=== PATIENT | male | born 1970 | race Caucasian/White ===

== ENCOUNTER 2017-05-03 14:10 | Emergency (ER) | payer MEDICAID ==
[~2017-05-03] VITALS: Ht 170.2 cm; Wt 89.0 kg
[~2017-05-03 14:10] MED LIST: ALLO100T64 PO; VIC
[2017-05-03 14:16] VITALS: Ht 170.2 cm; Wt 89.0 kg
[2017-05-03] MEDS ORDERED: HYDR-906 PO (15:05)
--- NOTE | 2017-05-03 15:13 | ERD ---
ER Documentation Chief Complaint Chief Complaint R ANKLE PAIN HAS HX OF GOUT HPI Patient is a 46-year-old male with a history of chronic gout presents to the ED for concerns of ankle pain. Patient states his right ankle pain started 2 days ago. Patient denies any falls or trauma. Patient denies any fevers or chills. Patient denies any redness. Patient slowly has swelling to the ankle joint. Patient does report taking indomethacin and colchicine daily. Patient denies any recent alcohol use, increased salt intake. Patient states he has had numerous gouty attacks and feels as if his current symptoms are related to gout. Patient states that he is needing stronger medication at this time. Patient denies any leg numbness or tingling. Patient works as [employer]. Patient denies any chest pain, shortness of breath, nausea, vomiting, headache, blurry vision or LOC. ROS All systems reviewed and are negative except as per history of present illness. Medications Home Meds Active Scripts Hydrocodone/Acetaminophen ([place] 5-325 Tablet) 1 Each Tablet, 1 TAB PO Q6H Y for PAIN, #10 TAB Prov:HANK WEAVER PA-C 05/03/17 Reported Medications Allopurinol* (Zyloprim*) 100 Mg Tablet, 100 MG PO daily 09/06/12 Acetaminophen/Hydrocodone (Vicodin) 1 Tab Tab 08/21/12 Allergies Allergies: Coded Allergies: No Known Drug Allergies (Verified Allergy, 09/23/12) PMhx/Soc History of Surgery: No Anesthesia Reaction: No Hx Neurological Disorder: No Hx Respiratory Disorders: No Hx Cardiac Disorders: No Hx Psychiatric Problems: No Hx Miscellaneous Medical Probl: Yes (gout) Hx Alcohol Use: No Hx Substance Use: No Hx Tobacco Use: No Physical Exam Vitals Vital Signs Date Time Temp Pulse Resp B/P Pulse Ox O2 Delivery O2 Flow Rate FiO2 05/03/17 15:21 98.1 78 18 152/80 98 Room Air 05/03/17 14:16 98.5 79 19 163/100 97 Physical Exam GENERAL: Well-developed, well-nourished male. Appears in no acute distress. Speaking in full sentences. HEAD: Normocephalic, atraumatic. EYES: Pupils are equally reactive bilaterally. EOMs grossly intact. No conjunctival erythema. ENT: Moist mucous membranes. No uvula deviation. No kissing tonsils. NECK: Supple. No meningismus. Normal range of motion of the neck. LUNG: Clear to auscultation bilaterally. No rhonchi, wheezing, rales or coarse breath sounds. HEART: Regular rate and rhythm. No murmurs, rubs or gallops. EXTREMITIES: Equal pulses bilaterally. No peripheral clubbing, cyanosis or edema. No unilateral leg swelling. Old scars and abrasions noted on bilateral knees, consistent with history of being a [employer]. NEUROLOGIC: Alert and oriented. Moving all four extremities without any difficulty. Normal speech. Steady gait. SKIN: Normal color. Warm and dry. No rashes or lesions. LEFT ANKLE: Minimal swelling on the lateral aspect of the ankle. No erythema, ecchymosis or obvious deformities noted. Skin intact. Full ROM of the knee.. Decreased range of motion of the ankle secondary to swelling. Sensation is intact to light touch. Lateral aspect of the ankle is tender to palpation. Tibia/fibula is nontender palpation. Midfoot and fifth metatarsal are nontender to palpation.. Neurovascularly intact. (Able to plantarflex, dorsiflex , jamia foot, invert foot, raise big toe.) 2+ DP and DT pulses. Procedures/MDM MEDICAL DECISION MAKING: This is a 46-year-old male with a history of gout presents ED for concerns of ankle pain 2 days. Patient felt as if his symptoms are consistent with previous gout attacks. Patient denies any falls or trauma.. Vital signs were reviewed. Patient was afebrile. Given the patient denied any falls or trauma, there is no indication for x-ray imaging at this time. At this time the patient's presentation is most consistent with gout. Patient was advised to continue colchicine and indomethacin as prescribed. Patient will be given a short course of [place] to help with pain control. Patient was affected extremity elevated and to put ice on the affected extremity. Low suspicion for ankle dislocation, ankle fracture , tibia fracture, fibula fracture, Maisonneuve fracture, foot fracture, osteomyelitis, septic joint, DVT, compartment syndrome or ankle sprain. At this time, unable to rule out any tendon and ligament injuries. PRESCRIPTIONS: [place] DISCHARGE: At this time, patient is stable for discharge and outpatient management. RICE therapy and ROM exercises were advised to avoid stiffness. I have instructed the patient to follow-up with his/her primary care physician in 1-2 days. I have discussed with the patient the possibility of needing to see an provider education specialist for further workup and imaging if the pain persists. I have instructed the patient to promptly return to the ER for any new or worsening symptoms including increased pain, swelling, redness, warmth or fever. The patient and/or family expressed understanding of and agreement with this plan. All questions were answered. Home care instructions were provided. Patients blood pressure was elevated (>120/80) but appears stable without evidence of hypertensive emergency, hypertensive urgency or end-organ failure. I had discussion with the patient about the risks of hypertension. I have advised the patient to follow up with his/her primary care physician for outpatient monitoring and treatment for hypertension in 2-3 days. I have instructed the patient to return to the ER for any new or worsening symptoms including chest pain, shortness of breath, headache, blurred vision, confusion, nausea, vomiting or LOC. Disclaimer: Inadvertent spelling and grammatical errors are likely due to EHR/ dictation software use and do not reflect on the overall quality of patient care. Also, please note that the electronic time recorded on this note does not necessarily reflect the actual time of the patient encounter. Departure Diagnosis: Primary Impression: Gout attack Gout site: ankle Gout etiology: unspecified cause Laterality: left Qualified Code: M10.9 - Acute gout of left ankle, unspecified cause Additional Impression: Ankle pain Chronicity: acute Laterality: left Qualified Code: M25.572 - Acute left ankle pain Condition: Stable Patient Instructions: Treating Gout Attacks, Gout Diet Referrals: [facility] YOU HAVE RECEIVED A MEDICAL SCREENING EXAM AND THE RESULTS INDICATE THAT YOU DO NOT HAVE A CONDITION THAT REQUIRES URGENT TREATMENT IN THE EMERGENCY DEPARTMENT. FURTHER EVALUATION AND TREATMENT OF YOUR CONDITION CAN WAIT UNTIL YOU ARE SEEN IN YOUR DOCTORS OFFICE WITHIN THE NEXT 1-2 DAYS. IT IS YOUR RESPONSIBILITY TO MAKE AN APPOINTMENT FOR FOLOW-UP CARE. IF YOU HAVE A PRIMARY DOCTOR --you should call your primary doctor and schedule an appointment IF YOU DO NOT HAVE A PRIMARY DOCTOR YOU CAN CALL OUR PHYSICIAN REFERRAL HOTLINE AT IF YOU CAN NOT AFFORD TO SEE A PHYSICIAN YOU CAN CHOSE FROM THE FOLLOWING [facility] [address] [facility] [facility]. [facility] [address] [facility] [address] [facility] [address] [facility]. [facility] [address] [facility]. [facility]. [address] [place]. [facility] YOU HAVE RECEIVED A MEDICAL SCREENING EXAM AND THE RESULTS INDICATE THAT YOU DO NOT HAVE A CONDITION THAT REQUIRES URGENT TREATMENT IN THE EMERGENCY DEPARTMENT. FURTHER EVALUATION AND TREATMENT OF YOUR CONDITION CAN WAIT UNTIL YOU ARE SEEN IN YOUR DOCTORS OFFICE WITHIN THE NEXT 1-2 DAYS. IT IS YOUR RESPONSIBILITY TO MAKE AN APPOINTMENT FOR FOLOW-UP CARE. IF YOU HAVE A PRIMARY DOCTOR --you should call your primary doctor and schedule and appointment IF YOU DO NOT HAVE A PRIMARY DOCTOR YOU CAN CALL OUR PHYSICIAN REFERRAL HOTLINE AT . IF YOU CAN NOT AFFORD TO SEE A PHYSICIAN YOU CAN CHOSE FROM THE FOLLOWING [facility] INSTITUTIONS: [facility] [address] [place] [address] [facility] [address] [place] [address] [facility] [address] [place] [address] Additional Instructions: Continue taking indomethacin and colchicine as prescribed. Do not take [place] when driving or operating any machinery. Call your primary care doctor TOMORROW for an appointment during the next 1-2 days.See the doctor sooner or return here if your condition worsens before your appointment time. HANK WEAVER PA-C May 03, 2017 15:13
[2017-05-03 15:21] VITALS: BP 152/80; PULSE 78; RESP 18; TEMP 98.1
== END 2017-05-03 15:23 | disposition home or self-care (01) ==
LOC: FTE 14:10
DX: M10.9 Gout, unspecified (principal)
CPT/HCPCS: 99283